=== PATIENT | male | born 2000 | race Asian ===

== ENCOUNTER 2020-10-02 19:01 | Emergency (ER) | payer OTHER ==
[~2020-10-02] VITALS: Ht 180.3 cm; Wt 68.5 kg
[2020-10-02 19:30] VITALS: Ht 180.3 cm; Wt 68.5 kg
[2020-10-02 21:14] VITALS: BP 138/91
== END 2020-10-02 21:14 | disposition home or self-care (01) ==
LOC: ED 19:01
DX: S52.501A Unspecified fracture of the lower end of right radius, initial encounter for closed fracture (principal); S52.201A Unspecified fracture of shaft of right ulna, initial encounter for closed fracture; W18.30XA Fall on same level, unspecified, initial encounter; Y93.89 Activity, other specified; Y92.89 Other specified places as the place of occurrence of the external cause; Y99.8 Other external cause status
CPT/HCPCS: J1885